=== PATIENT | female | born 1955 | race Hispanic/Latino ===

== ENCOUNTER 2018-04-06 06:31 | Inpatient (IN) | payer OTHER ==
[2018-04-06] MEDS ORDERED: ECOTRIN PO NR (06:55)
[2018-04-06] MEDS ORDERED: NACL 0.9% 500 ML 500 ML IV SCH (07:00)
[2018-04-06] MEDS ORDERED: HEPARIN/NS 5000 UNIT/500ML(CATH LAB) 1,000 ML IR ONE (08:46)
[2018-04-06] MEDS ORDERED: CALAN ONE (08:47)
[2018-04-06] MEDS ORDERED: HEPARIN 10,000 UNITS/10 ML ONE ×2 (08:47→10:34)
[2018-04-06] MEDS ORDERED: NITROGLYCERIN SYRINGE 3 ML ONE (08:47)
[2018-04-06] MEDS ORDERED: SUBLIMAZE ONE (08:48)
[2018-04-06] MEDS ORDERED: VERSED ONE (08:48)
[2018-04-06] MEDS: XYLOCAINE 2% INFILTRATI ONE ×2 (10:10→10:21)
[2018-04-06] MEDS ORDERED: NACL 0.9% 500 ML 500 ML ONE (10:34)
[2018-04-06] MEDS ORDERED: HEPARIN/NS 5000 UNIT/500ML(CATH LAB) 500 ML IR ONE (10:34)
[2018-04-06] MEDS ORDERED: ALUM-MAG HYDROX-SIMETH 200-200-20MG/5ML ONE (10:50)
[2018-04-06] MEDS ORDERED: PLAVIX ONE (10:50)
[2018-04-06] MEDS ORDERED: ULTRAM PO PRN (11:15)
[2018-04-06] MEDS ORDERED: ZOFRAN IV PRN (11:15)
[2018-04-06] MEDS ORDERED: D50W (25GM) Syringe IV PRN (11:18)
--- NOTE | 2018-04-06 11:24 | Cardiac Catherization Report ---
ADDENDUM: The patient had moderate sedation which is provided with 0.5 mg of Versed and 25 mcg of fentanyl. Total sedation time was 44 minutes, started at 10:07 a.m., finished at 10:54 a.m. JOB# [id number] FRANCK/NTS
[2018-04-06] MEDS ORDERED: NACL 0.9% 1000 ML 1,000 ML IV SCH (12:00)
[2018-04-06] MEDS ORDERED: IMDUR PO SCH (12:00)
--- NOTE | 2018-04-06 12:42 | Cardiac Catherization Report ---
LEFT HEART CATHETERIZATION/PERCUTANEOUS CORONARY INTERVENTIONAL/INTRAVASCULAR ULTRASOUND REPORT CLINICAL INFORMATION: This is a 62-year-old female with history of hypertension, diabetes, cholesterol, known coronary artery disease with PCI of the RCA and LAD with drug-eluting stents, presents with shortness of breath with exertion with a positive stress test despite medical therapy, moderate ischemia in the inferior region with normal LV function. Left heart catheterization performed via the right common femoral artery, sterile technique, local anesthesia, 5-[place] groin sheath inserted. PROCEDURE FINDINGS: Left system engaged with JL3.5 catheter. Left main is large and patent with mild luminal irregularities, bifurcates into large LAD, proximal to mid stent is widely patent mid to distal is as medium caliber vessel, patent with mild luminal irregularities. Diagonal 1 and diagonal 2, with a small caliber vessel, less than 1.5 mm patent. Circumflex and AV groove is a [id number] caliber vessel. It is patent with mild luminal irregularities, small caliber OM1 that is patent. Ramus is a [id number] caliber vessel. It is patent with mild luminal irregularities diffusely. RCA engaged with a 3RDC catheter, it is a dominant vessel, proximal to mid stent is patent and distal has two focal 95% lesions, bifurcates into a small caliber, 25 caliber PDA and multiple branches of PLV. LV gram done in ARTHUR and SHAH view shows normal LV function, LVEDP of 24 mmHg, LV is 146, aortic is 145/70. No gradient across the aortic valve on pullback. PERCUTANEOUS/INTRAVASCULAR STENT RCA: 1. A 5-[place] groin sheath changed out for a 6-[place] groin sheath. 2. Engaged RCA with 6-[place] 3RDC guiding catheter. 3. Wire to the PDA with a short [place] wire. 4. Predilated the distal RCA with a 2.5 x 10 mm balloon at 10 atmospheres x 3 inflations. 5. An intravascular ultrasound showed diffuse disease with distal reference vessel of 3-0. 6. Stented with the distal RCA prior to the bifurcation up to the crux with a drug-eluting Resolute 3.0 x 30 and inflated at 15 atmospheres. 7. Excellent angiographic result with good step up and step down. Good stent apposition, no dissection or perforation. Coronary wire was removed. Multiple angiograms continued LIZETH 3 flow. Increased flow and size of the PDA, PLV with good stent apposition. 8. A 6-[place] guiding catheter taken over a guidewire, 6-[place] groin sheath sewn in. No hematoma, no bleeding. SUMMARY: 1. Successful PCI with IVUS directed to distal RCA with 95% down to 0 with a drug-eluting Resolute 3.0 x 30, distal reference vessel 3.0. 2. Left main patent, LAD proximal mid stent patent. Rest of the LAD is patent. Mild luminal irregularities. Circumflex and AV groove is a small to medium caliber and patent. Ramus is a small to medium caliber vessel, patent with mild luminal irregularities. RCA proximal, mid stent patent, distal is 95%. 3. Normal LV function. 4. Continue dual antiplatelet therapy post-PCI care. Discussed in detail with the patient and the patient's family. JOB# [id number] FRANCK/CARLEY
[2018-04-06] MEDS ORDERED: NACL 0.9% 1000 ML 1,000 ML ONE (13:07)
[2018-04-06] MEDS: NORCO 5/325 PO PRN ×2 (16:07→22:09)
[2018-04-06] MEDS: HumuLIN R SUB-Q SCH ×2 (16:55→23:53)
[2018-04-06] MEDS ORDERED: NON-FORMULARY (Simvastatin [Zocor] 40 MG) PO SCH (22:00)
[2018-04-06] MEDS ORDERED: PRAVACHOL PO SCH (22:00)
[2018-04-06] MEDS ORDERED: AMBIEN PO PRN (23:40)
[2018-04-06] MEDS ORDERED: LYRICA PO SCH (23:40)
[2018-04-06] MEDS: LYRICA PO SCH ×2 (23:49)
[2018-04-07 05:17] LABS: Basophils % (Auto) 0.7 % (0.0-1.8); Eosinophils # (Auto) 0.1 K/mm3 (0.0-0.4); Eosinophils % (Auto) 2.4 % (0.0-4.3); Hematocrit 39.4 % (30.3-42.9); Lymphocytes # (Auto) 1.3 K/mm3 (1.2-5.4); Mean Corpuscular HGB Conc 33 % (30-34); Mean Corpuscular Hemoglobin 29 pg (28-32); Mean Corpuscular Volume 87 fl (79-97); Monocytes # (Auto) 0.6 K/mm3 (0.0-0.8); Monocytes % (Auto) 12.3 % (0.0-7.3); Platelet Count 128 K/mm3 (140-440); Red Blood Count 4.55 M/mm3 (3.65-5.03); Red Cell Distribution Width 16.3 % (13.2-15.2)
[2018-04-07 05:37] LABS: Creatine Kinase MB 4.1 ng/mL (0.0-4.0)
[2018-04-07 05:38] LABS: BUN/Creatinine Ratio 17; Blood Urea Nitrogen 15 mg/dL (7-17); Calcium 9.2 mg/dL (8.4-10.2); Hemolysis Index 3
[2018-04-07] MEDS ORDERED: SYNTHROID PO SCH (06:00)
[2018-04-07] MEDS: HumuLIN R SUB-Q SCH (07:38)
[2018-04-07 09:13] VITALS: BP 184/67
--- NOTE | 2018-04-07 09:14 | XRay Report ---
AP CHEST: HISTORY: Post PCI AP view of the chest demonstrates a normal mediastinal and cardiac contour with clear lungs and normal bony and soft tissue structures. IMPRESSION: Unremarkable AP chest.
[2018-04-07] MEDS ORDERED: IMDUR PO SCH (10:00)
[2018-04-07] MEDS ORDERED: BABY ASPIRIN PO SCH (10:00)
[2018-04-07] MEDS ORDERED: ZETIA PO SCH (10:00)
[2018-04-07] MEDS ORDERED: PLAVIX PO SCH (10:00)
[2018-04-07] MEDS ORDERED: TOPROL XL PO SCH (10:00)
[2018-04-07] MEDS ORDERED: ZESTRIL PO SCH (10:00)
[2018-04-07] MEDS: LYRICA PO SCH ×2 (10:04→10:05)
--- NOTE | 2018-04-07 10:20 | Short Stay Summary ---
<MARY JANE DURAN - Last Filed: 04/07/18 10:25> Short Stay Documentation Date of service: 04/07/18 - History H&P: obtained from office - Allergies and Medications Current Medications: Allergies No Known Allergies Allergy (Unverified 12/21/13 13:15) Home Medications Medication Instructions Recorded Confirmed Last Taken Type Aspirin [Aspirin TAB] 81 mg PO QDAY 04/06/18 04/06/18 04/05/18 History Clopidogrel Bisulfate [Plavix] 75 mg PO DAILY 04/06/18 04/06/18 04/06/18 04:30 History Dulaglutide [Trulicity] 1.5 mg SQ QWEEK 04/06/18 04/06/18 04/03/18 History Duloxetine HCl [DULoxetine] 90 mg PO DAILY 04/06/18 04/06/18 04/05/18 History Ezetimibe [Zetia] 10 mg PO QDAY 04/06/18 04/06/18 04/05/18 History ISOSORBIDE MONOnitrate [Imdur ER] 90 mg PO QDAY 04/06/18 04/06/18 04/05/18 History Insulin NPH Human Isophane 0 unit SQ AC 04/06/18 04/06/18 04/05/18 History [HumuLIN N] Levothyroxine [Synthroid] 75 mcg PO QAM 04/06/18 04/06/18 04/05/18 History Lisinopril [Zestril] 5 mg PO QDAY 04/06/18 04/06/18 04/05/18 History Metformin HCl [Fortamet ER] 1,000 mg PO BID 04/06/18 04/06/18 04/05/18 History Metoprolol Succinate [Toprol Xl] 12.5 mg PO DAILY 04/06/18 04/06/18 04/05/18 History Pregabalin [Lyrica] 200 mg PO DAILY 04/06/18 04/06/18 04/05/18 History Simvastatin [Zocor] 40 mg PO QHS 04/06/18 04/06/18 04/05/18 History Sitagliptin Phosphate [Januvia] 25 mg PO DAILY 04/06/18 04/06/18 04/05/18 History Zolpidem Tartrate [Ambien CR] 12.5 mg PO QHS 04/06/18 04/06/18 04/05/18 History oxyCODONE /ACETAMINOPHEN [Percocet 1 tab PO Q6HR PRN 04/06/18 04/06/18 04/05/18 History 5/325] Active Medications Acetaminophen/Hydrocodone Bitart ([place] 5/325) 1 each PO Q6H PRN PRN Reason: Pain, Moderate (4-6) Last Admin: 04/06/18 22:09 Dose: 1 each Aspirin (Baby Aspirin) 81 mg PO QDAY [facility] Last Admin: 04/07/18 10:06 Dose: 81 mg Clopidogrel Bisulfate (Plavix) 75 mg PO QDAY [facility] Last Admin: 04/07/18 10:05 Dose: 75 mg Dextrose (D50w (25gm) Syringe) 50 ml IV PRN PRN PRN Reason: Hypoglycemia Ezetimibe (Zetia) 10 mg PO QDAY [facility] Last Admin: 04/07/18 10:05 Dose: 10 mg Insulin Human Regular (Humulin R) 0 units SUB-Q [facility]; Protocol Last Admin: 04/07/18 07:38 Dose: Not Given Isosorbide Mononitrate (Imdur) 90 mg PO QDAY [facility] Last Admin: 04/07/18 10:05 Dose: 90 mg Levothyroxine Sodium (Synthroid) 75 mcg PO DAILY@0600 [facility] Last Admin: 04/07/18 06:34 Dose: 75 mcg Lisinopril (Zestril) 5 mg PO QDAY [facility] Last Admin: 04/07/18 10:06 Dose: 5 mg Metoprolol Succinate (Toprol Xl) 12.5 mg PO QDAY [facility] Last Admin: 04/07/18 10:06 Dose: 12.5 mg Ondansetron HCl (Zofran) 4 mg IV Q8H PRN PRN Reason: N/V unrelieved by Regcharles Pravastatin Sodium (Pravachol) 80 mg PO QHS [facility] Last Admin: 04/06/18 22:09 Dose: 80 mg Pregabalin (Lyrica) 150 mg PO QDAY [facility] Last Admin: 04/07/18 10:05 Dose: 150 mg Pregabalin (Lyrica) 50 mg PO QDAY [facility] Last Admin: 04/07/18 10:04 Dose: 50 mg Tramadol HCl (Ultram) 50 mg PO Q4H PRN PRN Reason: Pain, Mild (1-3) Zolpidem Tartrate (Ambien) 10 mg PO QHS PRN PRN Reason: Insomnia Last Admin: 04/07/18 00:03 Dose: 10 mg - Physical exam General appearance: no acute distress Integumentary: no rash, no growths, no abnormal pigmentation Lungs: Clear to auscultation Heart: Regular rate, Normal S1, Normal S2 Gastrointestinal: normal, normoactive bowel sounds Extremities: no ischemia, pulses intact, pulses symmetrical, No edema, normal temperature, normal color Neurological: Normal gait, Normal speech, Strength at 5/5 X4 ext - Brief post op/procedure progress note Date of procedure: 04/06/18 Pre-op diagnosis: CAD Post-op diagnosis: same Procedure: LHC with PCI - see dictated cath report - Hospital course Hospital course: The pt is a 62 YO female with a past medical history significant for HTN, HLP, DM, CAD s/p PCI who presented for scheduled elective LHC and subsequently underwent PCI of RCA. She remained clinically and hemodynamically stable throughout procedure and hospitalization and is currently medically stable for discharge home today. - Disposition Condition at discharge: Stable Disposition: [id number]-01 TO HOME OR SELFCARE - Discharge Diagnoses (1) CAD (coronary artery disease) Status: Chronic (2) Stented coronary artery Status: Chronic (3) HTN (hypertension) Status: Chronic (4) Hyperlipemia Status: Chronic (5) Diabetes Status: Chronic (6) Tobacco use Status: Chronic Short Stay Discharge Plan Activity: advance as tolerated Diet: low fat, low cholesterol, low salt, diabetic Wound: open to air, keep clean and dry, per your surgeon's advice Follow up with: MAI HOLLAND MD [Primary Care Provider] - 7 Days ZEYAD BUCKNER MD [Staff Physician] - 7 Days (Follow up in our [place] office with Dr. Buckner on 04/29/2018 @ 2:45PM) Forms: [facility] PCI D/C Instructions, Discharge Signature Page <ZEYAD BUCKNER - Last Filed: 04/07/18 11:20> Short Stay Documentation - Allergies and Medications Current Medications: Allergies No Known Allergies Allergy (Unverified 12/21/13 13:15) Home Medications Medication Instructions Recorded Confirmed Last Taken Type Clopidogrel Bisulfate [Plavix] 75 mg PO DAILY 04/06/18 04/06/18 04/06/18 04:30 History Dulaglutide [Trulicity] 1.5 mg SQ QWEEK 04/06/18 04/06/18 04/03/18 History Duloxetine HCl [DULoxetine] 90 mg PO DAILY 04/06/18 04/06/18 04/05/18 History Ezetimibe [Zetia] 10 mg PO QDAY 04/06/18 04/06/18 04/05/18 History ISOSORBIDE MONOnitrate [Imdur ER] 90 mg PO QDAY 04/06/18 04/06/18 04/05/18 History Insulin NPH Human Isophane 0 unit SQ AC 04/06/18 04/06/18 04/05/18 History [HumuLIN N] Levothyroxine [Synthroid] 75 mcg PO QAM 04/06/18 04/06/18 04/05/18 History Lisinopril [Zestril TAB] 5 mg PO QDAY 04/06/18 04/06/18 04/05/18 History Metformin HCl [Fortamet ER] 1,000 mg PO BID 04/06/18 04/06/18 04/05/18 History Metoprolol Succinate [Toprol Xl] 12.5 mg PO DAILY 04/06/18 04/06/18 04/05/18 History Pregabalin [Lyrica] 200 mg PO DAILY 04/06/18 04/06/18 04/05/18 History Simvastatin [Zocor] 40 mg PO QHS 04/06/18 04/06/18 04/05/18 History Sitagliptin Phosphate [Januvia] 25 mg PO DAILY 04/06/18 04/06/18 04/05/18 History Zolpidem Tartrate [Ambien CR] 12.5 mg PO QHS 04/06/18 04/06/18 04/05/18 History oxyCODONE /ACETAMINOPHEN [Percocet 1 tab PO Q6HR PRN 04/06/18 04/06/18 04/05/18 History 5/325 mg] Aspirin [Aspirin BABY CHEW TAB] 81 mg PO QDAY tab.chew 04/07/18 Unknown Rx Clopidogrel [Plavix] 75 mg PO QDAY tablet 04/07/18 Unknown Rx Pregabalin [Lyrica] 50 mg PO QDAY capsule 04/07/18 Unknown Rx Pregabalin [Lyrica] 150 mg PO QDAY capsule 04/07/18 Unknown Rx Zolpidem [Ambien] 10 mg PO QHS PRN tablet 04/07/18 Unknown Rx Active Medications Acetaminophen/Hydrocodone Bitart ([place] 5/325) 1 each PO Q6H PRN PRN Reason: Pain, Moderate (4-6) Last Admin: 04/06/18 22:09 Dose: 1 each Aspirin (Baby Aspirin) 81 mg PO QDAY [facility] Last Admin: 04/07/18 10:06 Dose: 81 mg Clopidogrel Bisulfate (Plavix) 75 mg PO QDAY [facility] Last Admin: 04/07/18 10:05 Dose: 75 mg Dextrose (D50w (25gm) Syringe) 50 ml IV PRN PRN PRN Reason: Hypoglycemia Ezetimibe (Zetia) 10 mg PO QDAY [facility] Last Admin: 04/07/18 10:05 Dose: 10 mg Insulin Human Regular (Humulin R) 0 units SUB-Q [facility]; Protocol Last Admin: 04/07/18 07:38 Dose: Not Given Isosorbide Mononitrate (Imdur) 90 mg PO QDAY [facility] Last Admin: 04/07/18 10:05 Dose: 30 mg Levothyroxine Sodium (Synthroid) 75 mcg PO DAILY@0600 [facility] Last Admin: 04/07/18 06:34 Dose: 75 mcg Lisinopril (Zestril) 5 mg PO QDAY [facility] Last Admin: 04/07/18 10:06 Dose: 5 mg Metoprolol Succinate (Toprol Xl) 12.5 mg PO QDAY [facility] Last Admin: 04/07/18 10:06 Dose: 12.5 mg Ondansetron HCl (Zofran) 4 mg IV Q8H PRN PRN Reason: N/V unrelieved by Reglan Pravastatin Sodium (Pravachol) 80 mg PO QHS [facility] Last Admin: 04/06/18 22:09 Dose: 80 mg Pregabalin (Lyrica) 150 mg PO QDAY [facility] Last Admin: 04/07/18 10:05 Dose: 150 mg Pregabalin (Lyrica) 50 mg PO QDAY [facility] Last Admin: 04/07/18 10:04 Dose: 50 mg Tramadol HCl (Ultram) 50 mg PO Q4H PRN PRN Reason: Pain, Mild (1-3) Zolpidem Tartrate (Ambien) 10 mg PO QHS PRN PRN Reason: Insomnia Last Admin: 04/07/18 00:03 Dose: 10 mg - Brief post op/procedure progress note Procedure: Patient has shortness of breath and had elevated left end-diastolic pressure has acute diastolic heart failure has resolved with BP control and PCI of the RCA with a drug-eluting resolution 3 0 x 30 mm with normal LV function via the right radial approach patient encouraged for diabetes and smoking cessation Anesthesia: local Estimated blood loss: none Pathology: none - Discharge Diagnoses (1) Acute diastolic (congestive) heart failure Status: Acute (2) Angina effort Status: Chronic (3) CAD (coronary artery disease) Status: Chronic Qualifiers: Coronary Disease-Associated Artery/Lesion type: [place] artery [place] vs. transplanted heart: [place] heart Associated angina: with stable angina Qualified Code(s): I25.118 - Atherosclerotic heart disease of [place] coronary artery with other forms of angina pectoris (4) Diabetes Status: Chronic Qualifiers: Diabetes mellitus type: type 1 Diabetes mellitus complication status: without complication Qualified Code(s): E10.9 - Type 1 diabetes mellitus without complications (5) HTN (hypertension) Status: Chronic Qualifiers: Hypertension type: essential hypertension Qualified Code(s): I10 - Essential (primary) hypertension (6) Hyperlipemia Status: Chronic Qualifiers: Hyperlipidemia type: mixed hyperlipidemia Qualified Code(s): E78.2 - Mixed hyperlipidemia (7) Tobacco use Status: Chronic Short Stay Discharge Plan Special Instructions: hold Metformin (hold metformin for 48 hours)
== END 2018-04-07 12:37 | disposition home or self-care (01) | DRG 246 ==
LOC: CATHLABREC 06:31 → 4A 11:15
PROVIDERS: ADMIT Internal Medicine; ATTEND Internal Medicine
PROC: 027034Z Dilation of Coronary Artery, One Artery with Drug-eluting Intraluminal Device, Percutaneous Approach (ICD-10-PCS; principal; 2018-04-06)
PROC: 4A023N7 Measurement of Cardiac Sampling and Pressure, Left Heart, Percutaneous Approach (ICD-10-PCS; 2018-04-06)
PROC: B2151ZZ Fluoroscopy of Left Heart using Low Osmolar Contrast (ICD-10-PCS; 2018-04-06)
PROC: B2111ZZ Fluoroscopy of Multiple Coronary Arteries using Low Osmolar Contrast (ICD-10-PCS; 2018-04-06)
DX: I25.118 Atherosclerotic heart disease of native coronary artery with other forms of angina pectoris (principal); I50.31 Acute diastolic (congestive) heart failure; Z68.41 Body mass index [BMI] 40.0-44.9, adult; E78.5 Hyperlipidemia, unspecified; I11.0 Hypertensive heart disease with heart failure; E66.01 Morbid (severe) obesity due to excess calories; E10.39 Type 1 diabetes mellitus with other diabetic ophthalmic complication; Z95.5 Presence of coronary angioplasty implant and graft; F17.200 Nicotine dependence, unspecified, uncomplicated; I27.20 Pulmonary hypertension, unspecified; Z79.82 Long term (current) use of aspirin
CPT/HCPCS: 36415; 71045; 80048; 82550; 82553; 82962; 84484; 85025; 85347; 92928; 92978; 93005; 93010; 93458; A9270-GY; C1725; C1753; C1769; C1874; C1887; C1894; C9600; J1644; J1815; J2250; J3010; J7030; J7040; Q9967